=== PATIENT | female | born 1990 | race Hispanic/Latino ===

== ENCOUNTER → 2020-11-01 | Outpatient (CLI) | payer BC, MEDICAID | END | disposition home or self-care (01) | LOC: RAH 11:35 | PROVIDERS: ATTEND Urology | DX: N28.1 Cyst of kidney, acquired (principal); N20.0 Calculus of kidney; N13.30 Unspecified hydronephrosis | CPT/HCPCS: 76770 ==

== ENCOUNTER 2021-01-04 07:03 | Day surgery (SDC) | payer OTHER, MEDICAID ==
[2021-01-03 09:35] VITALS: BP 120/66
[~2021-01-04] VITALS: Ht 157.5 cm; Wt 58.2 kg
[2021-01-04] VITALS (18 sets, daily range): BP systolic 111–130; BP diastolic 66–82
[~2021-01-04 07:03] MED LIST: CEFTRIAXONE SODIUM 1 GM IVP SCH; DOCU-116 PO; IBUP-2070 PO; TAMS-1 PO
[2021-01-04] MEDS ORDERED: IOHEXOL-350 50ML VIAL IV ONE (07:55)
[2021-01-04] MEDS ORDERED: LACTATED RINGERS 1000ML 1,000 ML IV ONE (08:00)
[2021-01-04] MEDS ORDERED: DEXAMETHASONE SOD PHOSPHATE 10MG/ML 1ML VIAL ONE (10:16)
[2021-01-04] MEDS ORDERED: LIDOCAINE PF 2% 5ML ABBOJECT ONE (10:16)
[2021-01-04] MEDS ORDERED: SUCCINYLCHOLINE 200MG/10ML SYR ONE (10:16)
[2021-01-04] MEDS ORDERED: FENTANYL CITRATE PF 50 MCG/1 ML 2ML VIAL ONE (10:17)
[2021-01-04] MEDS ORDERED: PROPOFOL 10 MG/ML 20ML VIAL IV ONE (10:17)
[2021-01-04] MEDS ORDERED: MIDAZOLAM HCL 1 MG/ML 2ML VIAL ONE (10:17)
== END 2021-01-04 12:55 | disposition home or self-care (01) ==
LOC: DAH 07:03
PROVIDERS: ATTEND Urology
DX: N13.2 Hydronephrosis with renal and ureteral calculous obstruction (principal); Z20.822 Contact with and (suspected) exposure to COVID-19; Z98.51 Tubal ligation status
CPT/HCPCS: 36415; 52356; 74018; 82360; A4215; A4221; A4222; A4223; A4354; A4358; A4510; A4600; A4663; A6260; C1726; C1758; C1769; C2617; C9803; J0330; J0696; J1100; J2001; J2250; J2704; J3010; J7120; U0003; Q9967